=== PATIENT | male | born 2000 | race Caucasian/White ===

== ENCOUNTER 2019-01-27 00:03 | Emergency (ER) | payer SELFPAY ==
[~2019-01-27] VITALS: Ht 162.6 cm; Wt 65.8 kg
[2019-01-27 00:08] VITALS: Ht 162.6 cm; Wt 65.8 kg
[2019-01-27 02:01] VITALS: BP 107/71
== END 2019-01-27 02:01 | disposition home or self-care (01) ==
LOC: ED 00:03
DX: S63.610A Unspecified sprain of right index finger, initial encounter (principal); W22.8XXA Striking against or struck by other objects, initial encounter; Y93.66 Activity, soccer; Y92.322 Soccer field as the place of occurrence of the external cause; Y99.8 Other external cause status
CPT/HCPCS: A4570